=== PATIENT | female | born 1985 | race Caucasian/White ===

== ENCOUNTER 2024-08-24 11:52 | Emergency (ER) | payer OTHER ==
[2024-08-24] MEDS ORDERED: ACETAMINOPHEN 500 MG TAB ONE (12:30)
[2024-08-24] MEDS ORDERED: LIDOCAINE 4% PATCH ONE (12:30)
[2024-08-24 12:40] LABS: Absolute Basophils 0.1 K/uL (0-0.5); Absolute Eosinophils 0.7 K/uL (0-0.5); Absolute Lymphocytes (CBC) 1.9 K/uL (0.7-4.9); Absolute Monocytes 0.8 K/uL (0.1-1.3); Absolute Neutrophil 8.8 K/uL (1.8-8.0); Basophils % 0.6 % (0-1.3); Eosinophils % 5.5 % (0-4.4); Hematocrit 36.5 % (36.0-45.0); Hemoglobin 11.8 g/dL (12.0-15.0); Lymphocytes % 15.6 % (15.3-44.8); MCH 26.4 pg (27.0-35.0); MCHC 32.3 g/dL (32.0-36.0); MCV 81.6 fL (80-100); Monocytes % 6.4 % (3.3-12.3); Neutrophils % 71.9 % (41.7-73.7); Platelets 284 thou/uL (152-406); RBC Red Blood Cell Count 4.47 M/uL (3.86-4.86); Red Cell Distribution Width 14.5 % (12.1-15.2)
[2024-08-24 12:45] LABS: Specific Gravity 1.017 (1.005-1.030); Sqamous Epithelial <5 /HPF (None Seen); Urine Bacteria <20 /HPF (<20); Urine Bilirubin NEGATIVE (Negative); Urine Blood Negative (Negative); Urine Clarity Turbid (Clear); Urine Color Light-Yellow (Yellow); Urine Culture Reflex Order NOT NEEDED; Urine Glucose 1+ (Negative); Urine Ketones NEGATIVE (Negative); Urine Microscopic Reflex YN ORDER UMIC; Urine Mucus 1+ /HPF (None Seen); Urine Nitrite NEGATIVE (Negative); Urine Protein NEGATIVE (Negative); Urine RBC <5 /HPF (None Seen); Urine Urobilinogen Normal (Normal); Urine WBC <5 /HPF (<5); Urine pH 5.5 (5.0-7.0)
[2024-08-24 12:56] LABS: Albumin 2.9 g/dL (3.4-5.0); Albumin/Globulin Ratio 0.6 (1.1-1.8); Anion Gap 10.4 mEq/L (5.0-15.0); Bilirubin Total 0.3 mg/dL (0.2-1.0); Globulin 4.5 g/dL (2.3-3.5); Potassium 3.4 mEq/L (3.5-5.1); Protein, Total 7.4 g/dL (6.4-8.2)
--- NOTE | 2024-08-24 13:49 | RAD REPORT ---
EXAMINATION: ONE VIEW CHEST XR CLINICAL INDICATION: Female, 39 years old.,rib injury TECHNIQUE: Frontal chest projection is submitted. Examination is limited by patient positioning and t echnique. COMPARISON: No prior exam. FINDINGS: The lungs are well inflated and clear. No pneumothorax or sizable effusion. The heart is normal in s ize. IMPRESSION: No acute intrathoracic abnormalities.
--- NOTE | 2024-08-24 13:50 | RAD REPORT ---
EXAMINATION: Ribs Left INDICATION: rib injury COMPARISON: Chest radiograph of earlier the same date TECHNIQUE: Frontal and multiple oblique views of the left rib cage. FINDINGS: Included portions of the chest reveal clear lungs. There is no effusion or pneumothorax. Mediastinal contours are within normal limits. No displaced rib fracture is identified. No suspicious focal osseous lesion.. IMPRESSION: No acute fractures are identified radiographically..
--- NOTE | 2024-08-24 13:58 | ER ---
Nurse's Notes [facility] Name: Leticia Hutton Age: 39 yrs Sex: Female : 1985 Arrival Date: 08/24/2024 Time: 11:52 Bed 5 Private MD: Diagnosis: Sprain of ribs Presentation: 08/24 12:05 Chief complaint: Patient states: has had a cough for 2 months, has been having left iw posterior rib pain for 4 days, today she coughed hard and felt a pop about an hour ago , is 33 weeks and 5 days . Coronavirus screen: At this time, the client does not indicate any symptoms associated with coronavirus-19. Ebola Screen: No symptoms or risks identified at this time. Initial Sepsis Screen: Does the patient meet any 2 criteria? No. Patient's initial sepsis screen is negative. Does the patient have a suspected source of infection? No. Patient's initial sepsis screen is negative. Risk Assessment: Do you want to hurt yourself or someone else? Patient reports no desire to harm self or others. Onset of symptoms was August 24, 2024. 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 - Infectious Disease History:: Denies. - Social history:: Smoking status: Patient denies any tobacco usage or history of. Screenin:20 [facility] ED Fall Risk Assessment (Adult) History of falling in the last 3 months, ko1 including since admission No falls in past 3 months (0 pts) Confusion or Disorientation No (0 pts) Intoxicated or Sedated No (0 pts) Impaired Gait No (0 pts) Mobility Assist Device Used No (0 pt) Altered Elimination No (0 pt) Score/Fall Risk Level 0 - 2 = Low Risk Oriented to surroundings, Maintained a safe environment, Educated pt \T\ family on fall prevention, incl call for assistance when getting out of bed, Assessed \T\ reinforced patient's understanding of fall precautions, Hourly rounding (assess needs \T\ fall precautionary measures) done. Abuse screen: Denies threats or abuse. Denies injuries from another. Nutritional screening: No deficits noted. Tuberculosis screening: No symptoms or risk factors identified. Assessment: 12:20 General: Appears distressed, uncomfortable, Behavior is calm, cooperative, appropriate ko1 for age. Pain: Complains of pain in posterior aspect of left lateral abdomen and anterior aspect of left lateral abdomen. Neuro: No deficits noted. Cardiovascular: No deficits noted. Respiratory: No deficits noted. GI: No deficits noted. : No deficits noted. EENT: No deficits noted. Derm: No deficits noted. Musculoskeletal: No deficits noted. Vital Signs: 12:05 BP 134 / 89; Pulse 94; Resp 16; Pulse Ox 100% on R/A; Weight 71.21 kg; Height 5 ft. 2 iw in. ; Pain 10/10; 13:09 BP 130 / 78; Pulse 82; Resp 15; Temp 98.5; Pulse Ox 100% ; ko1 13:59 BP 126 / 80; Pulse 84; Resp 15; Pulse Ox 100% ; ko1 12:05 Body Mass Index 28.72 (71.21 kg, 157.48 cm) iw 12:05 Pain Scale: Adult iw ED Course: 11:53 Patient arrived in ED. im 11:53 Prince Paiz MD is Attending Physician. ec2 12:07 Triage completed. iw 12:07 Arm band placed on. iw 12:14 Hyun Singh, FARIDA is Primary Nurse. ko1 12:20 Patient has correct armband on for positive identification. Placed in gown. Bed in low ko1 position. Call light in reach. Side rails up X 1. Provided Education on: labs, call light. Pulse ox on. NIBP on. Door closed. Noise minimized. Lights dimmed. Warm blanket given. Pillow given. Assisted to bathroom. 12:20 Initial lab(s) drawn, by me, sent to lab. Urine collected: clean catch specimen, clear. ko1 Inserted saline lock: 20 gauge in right antecubital area, using aseptic technique. Blood collected. Flushed with 10 mL NS. 12:29 CBC with Diff Sent. ko1 12:29 CMP Sent. ko1 12:29 Lipase Sent. ko1 12:29 Test, Urine Sent. ko1 12:29 Urinalysis w/ reflexes Sent. ko1 13:09 No provider procedures requiring assistance completed. ko1 13:12 Ribs Left XRAY In Process Unspecified. EDMS 13:12 CXR XRAY In Process Unspecified. EDMS 13:59 IV discontinued, intact, bleeding controlled, No redness/swelling at site. Pressure ko1 dressing applied. Administered Medications: 12:34 Drug: Acetaminophen PO 1000 mg PO once Route: PO; ko1 13:03 Follow up: Response: No adverse reaction ko1 12:34 Drug: Lidoderm Topical Patch 5 % (700 mg/patch) 1 patches Topical once; leave on for 12 ko1 hours; cover most painful area; may cut into smaller pieces Route: Topical; Site: affected area; 13:03 Follow up: Response: No adverse reaction ko1 Medication: 12:20 VIS not applicable for this client. ko1 Outcome: 13:58 Discharge ordered by . ec2 13:59 Discharged to home ambulatory, ko1 13:59 Condition: stable 13:59 Discharge instructions given to patient, Instructed on discharge instructions, follow up and referral plans. Demonstrated understanding of instructions, follow-up care, 14:08 Patient left the ED. ko1 Signatures: Dispatcher [employer] Felicia Aaron RN RN iw Hyun Singh RN RN ko1 Naida Fleming Edwin, MD MD ec2
--- NOTE | 2024-08-24 13:58 | EDPHYS ---
Physician Documentation [facility] Name: Leticia Hutton Age: 39 yrs Sex: Female : 1985 Arrival Date: 08/24/2024 Time: 11:52 Bed 5 Private MD: ED Physician Prince Paiz HPI: 08/24 12:22 This 39 yrs old Female presents to ER via Wheelchair with complaints of Flank ec2 Pain. 12:22 Patient is approximately 30 weeks arrives today for left flank pain. She ec2 states that she is having left chest wall pain. States that the pain occurred shortly after having a coughing fit. No urinary complaints, was recently seen outpatient yesterday and had a normal urine test. Patient reports no fevers, no chills, no nausea, no vomiting. Patient reports she is been having this cough for approximately 2 to 3 months.. 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 - Infectious Disease History:: Denies. - Social history:: Smoking status: Patient denies any tobacco usage or history of. ROS: 12:22 Constitutional: as per hpi ec2 Exam: 12:22 Constitutional: GEN: NAD Head: atraumatic Eyes: EOMI Ears: External ears are ec2 normal. CV: regular rate LUNGS: no respiratory distress ABD: non-distended, gravid uterus, soft abd, non-tender SKIN: no evidence of rashes MSK: no evidence of trauma, ttp to the L lateral ribs Vital Signs: 12:05 BP 134 / 89; Pulse 94; Resp 16; Pulse Ox 100% on R/A; Weight 71.21 kg; Height 5 ft. 2 iw in. ; Pain 10/10; 13:09 BP 130 / 78; Pulse 82; Resp 15; Temp 98.5; Pulse Ox 100% ; ko1 13:59 BP 126 / 80; Pulse 84; Resp 15; Pulse Ox 100% ; ko1 12:05 Body Mass Index 28.72 (71.21 kg, 157.48 cm) iw 12:05 Pain Scale: Adult iw MDM: 12:23 Data reviewed: vital signs. ED course: Patient arrives today for left-sided rib pain. ec2 Examination remarkable for well-appearing nontoxic dividual's otherwise in no acute distress with a reassuring examination. Will obtain laboratory to make sure we do not have any renal dysfunction, will defer urine studies given recent urine testing yesterday. Will also obtain chest x-ray and rib series to evaluate for bony pathology. Differential includes rib sprain, pneumonia . 12:59 ED course: CBC shows slight leukocytosis. Metabolic profile shows slight hypokalemia ec2 with potassium of 3.4. testing positive expectedly. Urine is noninfectious appearing. Lipase within normal ranges. . 13:58 Patient medically screened. ec2 08/24 11:56 Order name: CBC with Diff; Complete Time: 12:59 ec2 08/24 11:56 Order name: CMP; Complete Time: 12:59 ec2 08/24 11:56 Order name: Lipase; Complete Time: 12:59 ec2 08/24 11:56 Order name: Test, Urine; Complete Time: 12:59 ec2 08/24 11:56 Order name: Urinalysis w/ reflexes; Complete Time: 12:59 ec2 08/24 12:17 Order name: Ribs Left XRAY; Complete Time: 13:54 ec2 08/24 12:17 Order name: CXR XRAY; Complete Time: 13:54 ec2 08/24 11:56 Order name: IV Saline Lock; Complete Time: 12:29 ec2 08/24 11:56 Order name: Labs collected and sent; Complete Time: 12:29 ec2 Administered Medications: 12:34 Drug: Acetaminophen PO 1000 mg PO once Route: PO; ko1 13:03 Follow up: Response: No adverse reaction ko1 12:34 Drug: Lidoderm Topical Patch 5 % (700 mg/patch) 1 patches Topical once; leave on for 12 ko1 hours; cover most painful area; may cut into smaller pieces Route: Topical; Site: affected area; 13:03 Follow up: Response: No adverse reaction ko1 Disposition Summary: 08/24/24 13:58 Discharge Ordered Notes: Location: Home ec2 Condition: Stable ec2 Diagnosis - Sprain of ribs ec2 Followup: ec2 - With: Private Physician - When: - Reason: Re-evaluation by your physician Discharge Instructions: - Discharge Summary Sheet ec2 - Rib Contusion ec2 Forms: - Work release form ec2 - Medication Reconciliation Form ec2 - Antibiotic Education ec2 - Prescription Opioid Use ec2 - Patient Portal Instructions ec2 - Leadership Thank You Letter ec2 Signatures: Dispatcher [employer] Felicia Aaron RN RN iw Oliver, Kathy, RN RN ko1 Prince Paiz MD MD ec2 Corrections: (The following items were deleted from the chart) 12:18 12:18 Ribs Left+RAD.RAD.BRZ ordered. EDMS EDMS 12:22 11:57 Abdomen Pelvis Wo Con+CT.RAD.BRZ ordered. EDMS EDMS
[2024-08-24 14:59] VITALS: BP 126/80; TEMP 98.5; O2SAT 100
== END 2024-08-24 14:08 | disposition home or self-care (01) ==
LOC: ER 11:52
DX: O9A.213 Injury, poisoning and certain other consequences of external causes complicating pregnancy, third trimester (principal); S23.41XA Sprain of ribs, initial encounter; Z3A.30 30 weeks gestation of pregnancy
CPT/HCPCS: 85025; 81001; 36415; 81025; 83690; 80053; 71045; 71100; J2001